=== PATIENT | male | born 1990 | race African-American/Black ===

== ENCOUNTER 2016-07-07 11:34 | Emergency (ER) | payer OTHER ==
[~2016-07-07] VITALS: Ht 182.9 cm; Wt 114.3 kg
[2016-07-07 12:33] VITALS: BP 122/53
== END 2016-07-07 14:54 | disposition left against medical advice (07) ==
LOC: EME 11:34
DX: M79.672 Pain in left foot (principal); M25.475 Effusion, left foot; Z53.21 Procedure and treatment not carried out due to patient leaving prior to being seen by health care provider
CPT/HCPCS: 99281; 99283